=== PATIENT | male | born 1990 | race Caucasian/White ===

== ENCOUNTER 2016-11-06 11:05 | Inpatient (IN) ==
[~2016-11-06 11:05] MED LIST: FAMOTIDINE 20 MG/2 ML VIAL IV ONE; KETOROLAC 30 MG/1 ML VIAL ONE; LIDOCAINE 2% 5 ML VIAL ONE; METOCLOPRAMIDE 10 MG/2 ML VIAL ONE; ONDANSETRON 4 MG/2 ML VIAL ONE; PROPOFOL 200 MG/20 ML VIAL IV ONE
[2016-11-06 12:15] LABS: Basophils % 0.4 % (0.0-0.8); Eosinophils # 0.3 10*3/uL (0.0-0.87); Eosinophils % 4.1 % (0.00-10.9); Hematocrit 42.5 VOL% (42.0-52.0); Hemoglobin 14.3 GM/DL (14.0-18.0); Immature Granulocytes % 0.4 %; Immature Granulocytes Absolute 0.03 #; Lymphocytes # 1.6 10*3/uL (1.4-4.0); Lymphocytes % 20.2 % (21.2-54.2); Mean Corpuscular HGB Conc 33.6 GM/DL (32-36); Mean Corpuscular Hemoglobin 29 PG (27-34); Mean Corpuscular Volume 87.3 FL (87-102); Mean Platelet Volume 9.8 FL (9.6-12.0); Monocytes # 0.3 10*3/uL (0.11-0.8); Monocytes % 4.2 % (1.7-12.7); Neutrophils # 5.5 10*3/uL (1.4-7.4); Neutrophils % 70.7 % (38.7-73.9); Platelet Count 234 T/CUMM (130-400); Red Blood Count 4.87 MC/CUMM (3.8-5.5); Red Cell Distribution Width 13.6 % (9.3-17.3); White Blood Count 7.8 T/CUMM (4-12)
--- NOTE | 2016-11-06 13:01 | XRay Report ---
History: infection to end of index finger x 3 weeks Date: 11/06/2016 Study: Right index finger 3 views Comparison exam: No previous similar There is lytic change and abnormal periosteal reaction compatible with osteomyelitis involving the distal phalanx of the right index finger. These changes are most pronounced at the ventral aspect of the tuft, though there is periosteal reaction extending from the proximal metaphyseal level. There is soft tissue swelling in this area. There is no definite foreign body at this site. There is a presumed chronic incidental foreign body of metallic density measuring 3 mm medial to the head of the second metacarpal. Impression: Acute osteomyelitis distal phalanx right index finger PROCEDURE INTERPRETED AT [facility] ([facility]) DEPARTMENT OF RADIOLOGY Final Report Signed by: Dr. Bethany Mello
--- NOTE | 2016-11-06 13:30 | Emergency Department Note ---
Arrival - Arrival Chief Complaint: Extremity Problem Stated Complaint: finger ED Nursing Triage Note: here for infection to right index finger. was seen three weeks ago for same complaint but reports it is not getting better. Mode of Arrival: Ambulatory Limitations: No Limitations Source: Patient, Old Records Reviewed, RN Notes Reviewed Time Seen by Provider: 11/06/16 11:40 - History of Present Illness HPI Narrative: 26-year-old white male presents to ED with chief complaint of infection of right index finger. He was seen in this ED on 10/23/2016 for an abscess in his right axilla and cellulitis of this finger. He had an I&D of the abscess and was prescribed clindamycin and doxycycline for the finger. He has been taking the clindamycin twice a day instead of 3 times a day as ordered. Returns today because finger is still not healed. Allergies/Adverse Reactions: Allergies Allergy/AdvReac Type Severity Reaction Status Date / Time Penicillins Allergy Unknown/Unable Verified 10/23/16 21:30 to obtain Home Medications: Home Medications Medication Instructions Recorded Confirmed Type Clindamycin Cap [Cleocin Cap] 300 mg PO Q8HR #30 capsule 10/24/16 11/06/16 Rx Doxycycline Hyclate Cap 100 mg PO BID #20 capsule 10/24/16 11/06/16 Rx [Vibramycin Cap] Indomethacin Cap [Indocin Cap] 25 mg PO TID #30 capsule 10/24/16 11/06/16 Rx Review of System - Review of System 12 point system: reviewed and no additional remarkable complaints except as stated - Review of System Constitutional: Absent: fever Respiratory: Absent: respiratory distress Cardiovascular: Absent: chest pain Skin: Present: as per HPI Medical,Surgical,& Family Hx - Medical History Medical History: noncontributory - Social History Smoking Status: Current every day smoker Exam Physical Examination: - General General appearance: alert, in no apparent distress - Head Head exam: Present: atraumatic, normocephalic, normal inspection - Eye Eye exam: Present: normal appearance, PERRL, EOMI - Neck Neck exam: Present: normal inspection, full ROM - Chest Chest inspection: Present: normal appearance, symmetric chest rise - Respiratory Respiratory exam: Present: normal lung sounds bilaterally. Absent: accessory muscle use, rales, respiratory distress, rhonchi, wheezes - Cardiovascular Cardiovascular exam: Present: regular rate, normal rhythm, normal heart sounds - Abdominal Exam Abdominal exam: Present: soft, normal bowel sounds - Extremities Exam Extremities exam: Present: tenderness; right index finger, minimal finger swelling, skin on the end of the finger has sloughed off. We clipped the rest of this off. Tissue is erythematous and draining. Painful, limited ROM. - Neurological Exam Neurological exam: Present: alert, oriented X3 Absent: motor sensory deficit - Psychiatric Psychiatric exam: Present: normal affect, normal mood - Skin Skin exam: Present: warm, dry, intact Vital Signs: Vital Signs Temperature 97.4 F L 11/08/16 20:00 Pulse Rate 82 11/08/16 20:00 Respiratory Rate 18 11/08/16 20:00 Blood Pressure 146/77 11/08/16 20:00 O2 Sat by Pulse Oximetry 98 11/08/16 20:00 Course Course Narrative: 1430: Dr. Tracy here to examine patient and write orders. - Consultations Time: 13:35 (Muna at Dr. Tracy's office notified of pt presence and status.) Time: 13:45 (Muna called back. Dr. Tracy will take him to surgery this afternoon.) Results - Labs CBC & BMP: 11/06/16 12:01 11/06/16 12:01 Lab Results: I have reviewed the patients labs - Diagnostic Findings Procedure: X-ray: report reviewed by me, image reviewed by me (Impression: Acute osteomyelitis distal phalanx right index finger) Disposition Clinical Impression: Osteomyelitis of finger of right hand Case discussed with: patient, patient's family Disposition: Still a Patient Condition: Stable Time of Disposition: 13:45 (Admit for surgery. Length of stay increased due to 1 hr & 3 minutes from x-ray order to results.)
[2016-11-06 14:03] LABS: Calcium 8.6 MG/DL (8.5-10.1); Potassium 4.3 MMOL/L (3.5-5.1)
[2016-11-06] MEDS ORDERED: BUPIVACAINE 0.5% 50 ML VIAL ONE ×3 (14:33→14:53)
--- NOTE | 2016-11-06 14:44 | Orthopedic History & Physical ---
History of Present Illness Chief complaint: Persistent drainage right index finger, pain and swelling History of present illness: Mr. Ames is a 26 year old male who was seen October 24, 2019 with a right volar distal index felon. He was placed on clindamycin and doxycycline. He presents today because of persistent swelling, drainage and pain. Patient states that the swelling has improved since she has been on antibiotics but is not stopped. The patient is unaware of a specific injury. He works in [employer]. The patient did dig at his finger with a needle. He denies any sort of recreational drug activity. Past medical history is negative. Past surgical history is negative. Otherwise no home medicines. He has an unknown allergy to penicillin. Review of systems otherwise negative. The patient is right-hand dominant. His is recently left him. He is a half pack per day smoker. Occasional alcohol. Denies recreational drug activity. Alert and oriented. Lungs clear to auscultation. Heart regular rate and rhythm Right hand shows fluctuance and slight swelling involving the distal tip of his right index finger. He has several small sinus tracts. He is tender to palpation. There is no tenderness over his flexor tendon sheath. He has mild restriction full-fledged and and is able to extend. His nail beds intact. Capillary refills less than 2 seconds. Sensations intact to light touch to his radial and ulnar digital aspects of his finger. X-rays were reviewed which show erosive changes involving the volar aspect of his distal tuft of his distal phalanx. Impression: Right index finger felon with associated osteomyelitis Plan: I have advised emergent irrigation and debridement and possible amputation of the distal tip of his distal phalanx. Risks and benefits were discussed. All questions were answered. He will be admitted for wound care and IV antibiotics Home Medications Medication Instructions Recorded Confirmed Type Clindamycin Cap [Cleocin Cap] 300 mg PO Q8HR #30 capsule 10/24/16 Rx Doxycycline Hyclate Cap 100 mg PO BID #20 capsule 10/24/16 Rx [Vibramycin Cap] Indomethacin Cap [Indocin Cap] 25 mg PO TID #30 capsule 10/24/16 Rx Allergies Allergy/AdvReac Type Severity Reaction Status Date / Time Penicillins Allergy Unknown/Unable Verified 10/23/16 21:30 to obtain Medical,Surgical,& Family Hx - Social History Smoking Status: Current every day smoker Exam - Constitutional Vitals: Period Temp Pulse Resp BP Sys/Walters Pulse Ox Last 24 Hr 98.6 F-98.6 F 91-91 18-18 145-145/90-90 100 Results - Labs CBC & BMP: 11/06/16 12:01 11/06/16 12:01
[2016-11-06] MEDS ORDERED: MAGNESIUM HYDROXIDE SUSP 30 ML UDCUP PO PRN (16:15)
--- NOTE | 2016-11-06 16:15 | Operative Note ---
Procedure: DIAGNOSIS: Right index finger felon and distal phalanx osteomyelitis PROCEDURE: Right index finger excisional debridement skin and subcutaneous tissue 5 x 15 mm. Ostectomy right index finger distal phalanx SURGEON: Demarcus ANESTHESIA: MAC and local PROCEDURE and FINDINGS: After adequate anesthesia was induced, a digital block was performed with 8 cc of 50/50 mixture of 2% lidocaine and half percent Marcaine plain. His right upper extremities prepped and draped in usual sterile fashion. His limb was gravity exsanguinated. Tourniquet was inflated 250 mmHg. Estimated tourniquet time was 9 minutes. Inspection of his finger and removal of the superficial epidermis demonstrated full-thickness necrotic tissue 5 x 15 mm on the volar surface of his fingertip. Tissue was sharply excised. Anaerobic and aerobic cultures were obtained. The distal phalanx was exposed at the distal end of the wound. The patient had a small sinus tract within the distal phalanx. The distal phalanx was curetted to bleeding bone. The edges of the sinus tract were resected with a rongeur. The wound was copiously irrigated. Tourniquet was released. A sterile soft dressing was applied. Surgeon / Physician: Michael Tracy Jr. Results - Labs CBC & BMP: 11/06/16 12:01 11/06/16 12:01 Discharge Plan - Discharge Data Disposition: Still a Patient - Discharge Medications No Action Clindamycin Cap [Cleocin Cap] 300 mg PO Q8HR #30 capsule Indomethacin Cap [Indocin Cap] 25 mg PO TID #30 capsule Doxycycline Hyclate Cap [Vibramycin Cap] 100 mg PO BID #20 capsule - Follow Up or Referral - Forms/Instructions
[2016-11-06] MEDS ORDERED: CLINDAMYCIN INJ 50 ML IV ONE (16:21)
[2016-11-06] MEDS ORDERED: ONDANSETRON 4 MG/2 ML VIAL IV PRN (16:35)
[2016-11-06] MEDS ORDERED: KETOROLAC 30 MG/1 ML VIAL IV PRN (16:35)
--- NOTE | 2016-11-06 16:50 | Anesthesia Post-Op ---
Anesthesia Post OP - Post Ansesthetic Evaluation Patient seen in post op: Yes Resp: within normal limits CV: within normal limits Mental: within normal limits Temp: within normal limits [id number]: within normal limits Nausea and Vomiting: within normal limits Pain: within normal limits
[2016-11-06] MEDS ORDERED: MIDAZOLAM 2 MG/2 ML VIAL ONE (16:53)
[2016-11-06] MEDS ORDERED: METOCLOPRAMIDE 10 MG/2 ML VIAL ONE (16:54)
[2016-11-06] MEDS ORDERED: LACTATED RINGERS 1,000 ML IV ONE (16:55)
[2016-11-07] MEDS: CLINDAMYCIN INJ 900 MG in PREMIX 1 EACH IV SCH ×3 (01:04→18:15)
[2016-11-07] MEDS: MORPHINE 2 MG/1 ML SYRINGE IV PRN ×3 (01:05→17:05)
--- NOTE | 2016-11-07 14:19 | Orthopedic Progress Note ---
Orthopedics - Subjective Interval history: Comfortable. He has been leaving the floor to smoke. Dressing taken down. Thumb significantly better. The open wound is clean without purulence. Cultures are growing out 2 gram-negative rods and gram-positive cocci. Plan: Start twice daily iodoform dressing changes. Add gentamicin for gram- negative shimon coverage. Home when ulcers finalized on oral antibiotics. I discussed the importance of nicotine cessation. Exam - Constitutional Vitals: Period Temp Pulse Resp BP Sys/Walters Pulse Ox Last 24 Hr 97.4 F-98.6 F 59-100 16-20 109-152/65-94 96-100 Results - Labs CBC & BMP: 11/06/16 12:01 11/06/16 12:01 Specialty Discharge - Follow Up or Referrals Follow up with: Michael Tracy Jr., MD [Physician] -
--- NOTE | 2016-11-07 14:22 | Discharge Summary ---
Hospital Course - Hospital Course Hospital Course: Mr. Ames was admitted after undergoing emergent excisional debridement of a right index finger felon with associated osteophectomy of his distal phalanx for osteomyelitis. He was started initially on IV clindamycin and then gentamicin was added for gram-negative shimon coverage. Dressing changes were initiated postoperative day #1. He was discharged home in stable condition. His cultures grew out Staphylococcus epididermidis, Enterobacter, Klebsiella. Enterococcus faecalis grew in the enrichment media. He is discharged home on ciprofloxacin. - Time spent with patient Time spent discussing smoking cessation with patient: 3 to 10 minutes Specialty Discharge - Follow Up or Referrals Follow up with: Michael Tracy Jr., MD [Physician] - Discharge Plan - Discharge Data Disposition: Disch To Home/Self Care Condition at Discharge: Stable Discharge Diet: advance to your usual diet Hygiene: may shower Driving: other (While taking [place].) - Discharge Medications No Action Clindamycin Cap [Cleocin Cap] 300 mg PO Q8HR #30 capsule Indomethacin Cap [Indocin Cap] 25 mg PO TID #30 capsule Doxycycline Hyclate Cap [Vibramycin Cap] 100 mg PO BID #20 capsule - Follow Up or Referral Follow Up: Michael Tracy Jr., MD [Physician] - - Forms/Instructions Additional Discharge Instructions: Twice daily iodoform dressing changes. Encourage range of motion of his hand. Prescription for [place] 5 with 20 tablets and ciprofloxacin were written. No smoking. Follow-up appointment in 10-14 days. Exam - Constitutional Vitals: Period Temp Pulse Resp BP Sys/Walters Pulse Ox Last 24 Hr 97.4 F-98.6 F 59-100 16-20 109-152/65-94 96-100 Discharge Results Procedures and tests throughout hospitalization: Pending Orders 11/06/16 Abscess Culture Routine Anaerobic Culture Routine Labs on day of discharge: Preliminary micro results at discharge 11/06/16 Unknown Abscess Culture - Preliminary Finger - Right Index Gram Negative Rods Gram Negative Rods#2 Gram Positive Cocci DS: Provider Date of admission: 11/06/16 16:15 Primary care physician: . No PCP Attending physician on admission: Michael Tracy Jr., Discharging clinician: Michael Tracy Jr., Expected date of discharge: 11/10/16
[2016-11-07] MEDS ORDERED: GENTAMICIN INJ 80 MG in PREMIX 1 EACH IV SCH (14:30)
[2016-11-07] MEDS: GENTAMICIN INJ 400 MG in SODIUM CHLORIDE 0.9% 100 ML IV SCH (17:13)
[2016-11-08] MEDS: CLINDAMYCIN INJ 900 MG in PREMIX 1 EACH IV SCH ×3 (00:24→19:10)
[2016-11-08] MEDS: MORPHINE 2 MG/1 ML SYRINGE IV PRN ×2 (00:29→11:23)
[2016-11-08] MEDS: GENTAMICIN INJ 400 MG in SODIUM CHLORIDE 0.9% 100 ML IV SCH (16:34)
[2016-11-09] MEDS: CLINDAMYCIN INJ 900 MG in PREMIX 1 EACH IV SCH ×3 (02:35→17:15)
--- NOTE | 2016-11-09 08:26 | Orthopedic Progress Note ---
Orthopedics - Subjective Interval history: Patient is comfortable and participating in dressing changes. Wound looks good with iodoform packing. C&S is still pending and will wait for antibiotic sensitivities for discharge Exam - Constitutional Vitals: Period Temp Pulse Resp BP Sys/Walters Pulse Ox Last 24 Hr 97.3 F-98.0 F 71-84 14-20 120-155/71-90 97-99 Results - Labs CBC & BMP: 11/06/16 12:01 11/06/16 12:01 Specialty Discharge - Follow Up or Referrals Follow up with: Michael Tracy Jr., MD [Physician] -
[2016-11-09] MEDS: GENTAMICIN INJ 400 MG in SODIUM CHLORIDE 0.9% 100 ML IV SCH (17:45)
[2016-11-10] MEDS: CLINDAMYCIN INJ 900 MG in PREMIX 1 EACH IV SCH (00:40)
[2016-11-10] MEDS ORDERED: CIPROFLOXACIN 500 MG TABLET PO SCH (09:00)
[2016-11-10 10:14] LABS: Calcium 9.2 MG/DL (8.5-10.1); Osmolality,Calculated 274.8 MOS/KG (273-304); Potassium 4.6 MMOL/L (3.5-5.1)
--- NOTE | 2016-11-10 11:36 | Orthopedic Progress Note ---
Orthopedics - Subjective Interval history: Mr. Ames's wound is clean and closing. He is feeling better and is ready to be discharged home. Plan: Discharge instructions were reviewed. Stop clindamycin and add ciprofloxacin. I discussed the side effect profile for Cipro. Discharge home after this afternoon dose of gentamicin. Exam - Constitutional Vitals: Period Temp Pulse Resp BP Sys/Walters Pulse Ox Last 24 Hr 97.0 F-97.5 F 70-103 16-20 128-158/73-98 95-98 Results - Labs CBC & BMP: 11/06/16 12:01 11/10/16 09:22 Specialty Discharge - Follow Up or Referrals Follow up with: Michael Tracy Jr., MD [Physician] - 11/19/16 1:30 pm
[2016-11-10] MEDS: GENTAMICIN INJ 400 MG in SODIUM CHLORIDE 0.9% 100 ML IV SCH (16:45)
[2016-11-10 16:52] VITALS: BP 112/61
== END 2016-11-10 17:45 | disposition home or self-care (01) | DRG 517 ==
LOC: N.ED 11:05 → N.EDINP 16:15 → N.3E 17:39
PROVIDERS: ADMIT Orthopaedic Surgery; ATTEND Orthopaedic Surgery